=== PATIENT | male | born 1960 | race Caucasian/White ===

== ENCOUNTER 2016-12-24 06:35 | Emergency (ER) | payer OTHER ==
--- NOTE | 2016-12-24 08:13 | RAD ---
Indication: Left shoulder pain, chest pain. 2 views of the chest including dual energy PA views demonstrates no mediastinal shift. Heart is of normal size and configuration. Lung heredia are clear. IMPRESSION: No active cardiopulmonary disease is noted.
--- NOTE | 2016-12-24 08:14 | RAD ---
INDICATION: Left shoulder pain COMPARISON: None TECHNIQUE: Routine frontal, Y and axial views were obtained. FINDINGS: There are no acute bony findings. There is mild a.c. and glenohumeral osteoarthritis. There are early findings of calcific tendinitis. IMPRESSION: MINOR OSTEOARTHRITIC CHANGES.
[2016-12-24 08:20] LABS: Hematocrit 44 % (42-52); Hemoglobin 14.9 g/dl (14.0-18.0); Mean Corpuscular HGB Conc 34 g/dl (31-36); Mean Corpuscular Hemoglobin 28 pg (27-31); Mean Corpuscular Volume 83 fL (80-94); Mean Platelet Volume 9 um3 (7.4-10.4); Red Blood Count 5.29 10^6/ul (4.0-5.4); Red Cell Distribution Width 14 % (10.5-15); White Blood Count 9.6 10^3/ul (3.5-10.8)
[2016-12-24 08:36] LABS: Albumin 4.4 g/dL (3.2-5.2); BUN/Creatinine Ratio 15.6 (8-20); Calcium 9.4 mg/dL (8.6-10.3); EGFR African American 103.5 (>60); EGFR Non-African American 80.5 (>60); Globulin 2.8 g/dL (2-4); Potassium 4.1 mmol/L (3.5-5.0); Total Bilirubin 0.6 mg/dL (0.2-1.0); Total Protein 7.2 g/dL (6.4-8.9)
[2016-12-24 08:37] LABS: Troponin I 0.01 ng/mL (<0.04)
[2016-12-24 11:05] VITALS: BP 143/80
--- NOTE | 2016-12-24 18:49 | ED ---
Jim Ramos Rebecca, scribed for Camilo Hightower MD on 12/24/16 at 0740 . Upper Extremity Pain - HPI Summary HPI Summary: Pt is a 56 y/o M who presents to ED c/o L shoulder pain since this morning at 0600 upon waking up. Pain is currently severe, ranked 8/10 and described as being "in my bone" and sharp. Treated pain with 2 Oxycodone 5mg ENVELOPE CUTTER with no change. Sx aggravated by movement and alleviated by nothing. PMHx L rotator cuff problems with surgery. - History of Current Complaint Chief Complaint: EDExtremityUpper Stated Complaint: LEFT SHOULDER PAIN Time Seen by Provider: 12/24/16 07:19 Hx Obtained From: Patient Onset/Duration: Started Hours Ago, Still Present Severity Currently: Severe - 8/10 Pain Location: Shoulder - Left Character: Sharp Aggravating Factor(s): Movement Alleviating Factor(s): Nothing Associated Signs & Symptoms: Positive: Negative - Allergies/Home Medications Allergies/Adverse Reactions: Allergies Allergy/AdvReac Type Severity Reaction Status Date / Time No Known Allergies Allergy Verified 12/16/16 11:37 PMH/Surg Hx/FS Hx/Imm Hx Endocrine/Hematology History: Reports: Hx Diabetes - BORDERLINE Cardiovascular History: Denies: Hx Hypertension, Hx Pacemaker/ICD Respiratory History: Reports: Hx Asthma, Hx Chronic Obstructive Pulmonary Disease (COPD) History: Denies: Hx Dialysis, Hx Renal Disease Musculoskeletal History: Reports: Hx Arthritis - "ALL OVER", Other Musculoskeletal History - STENOSIS IN BACK Sensory History: Reports: Hx Contacts or Glasses - INSTRUCTS GIVEN Denies: Hx Hearing Aid Opthamlomology History: Reports: Hx Contacts or Glasses - INSTRUCTS GIVEN Psychiatric History: Reports: Hx Anxiety - NO MEDICATION FOR, Hx Depression - NO MEDICATION FOR Denies: Hx Panic Disorder - Surgical History Surgery Procedure, Year, and Place: ROME ROTATOR CUFF REPAIR; RIGHT KNEE ARTHROSCOPE Hx Anesthesia Reactions: No Infectious Disease History: No Infectious Disease History: Denies: Traveled Outside the [place] in Last 30 Days - Family History Known Family History: Negative: Hypertension, Diabetes - Social History Alcohol Use: Rare Substance Use Type: Reports: None Smoking Status (MU): Never Smoked Tobacco Review of Systems Negative: Fever Positive: Arthralgia - L shoulder pain All Other Systems Reviewed And Are Negative: Yes Physical Exam - Summary Physical Exam Summary: VITAL SIGNS: Reviewed. GENERAL: ~Patient is a well-developed and nourished male who is lying comfortable in the stretcher. ~Patient is not in any acute respiratory distress. HEAD AND FACE: No signs of trauma. ~No ecchymosis, hematomas or skull depressions. No sinus tenderness. EYES: PERRLA, EOMI x 2, No injected conjunctiva, no nystagmus. EARS: Hearing grossly intact. Ear canals and tympanic membranes are within normal limits. MOUTH: Oropharynx within normal limits. NECK: Supple, trachea is midline, no adenopathy, no JVD, no carotid bruit, no c- spine tenderness, neck with full ROM. CHEST: Symmetric, no tenderness at palpation LUNGS: Clear to auscultation bilaterally. No wheezing or crackles. CVS: Regular rate and rhythm, S1 and S2 present, no murmurs or gallops appreciated. ABDOMEN: Soft, non-tender. No signs of distention. No rebound no guarding, and no masses palpated. Bowel sounds are normal. EXTREMITIES: FROM in all major joints, no edema, no cyanosis or clubbing, slightly tender along L collar bone. NEURO: Alert and oriented x 3. No acute neurological deficits. Speech is normal and follows commands. SKIN: Dry and warm, no rashes Triage Information Reviewed: Yes Vital Signs On Initial Exam: Initial Vitals Temp Pulse Resp BP Pulse Ox 99.4 F 82 18 147/86 95 12/24/16 06:44 12/24/16 06:44 12/24/16 06:44 12/24/16 06:44 12/24/16 06:44 Vital Signs Reviewed: Yes Diagnostics - Vital Signs Vital Signs Temp Pulse Resp BP Pulse Ox 12/24/16 06:44 99.4 F 82 18 147/86 95 - Laboratory Lab Results: Lab Results 12/24/16 12/24/16 12/24/16 Range/Units 08:10 08:10 08:10 WBC 9.6 (3.5-10.8) 10^3/ul RBC 5.29 (4.0-5.4) 10^6/ul Hgb 14.9 (14.0-18.0) g/dl Hct 44 (42-52) % MCV 83 (80-94) fL MCH 28 (27-31) pg MCHC 34 (31-36) g/dl RDW 14 (10.5-15) % Plt Count 208 (150-450) 10^3/ul MPV 9 (7.4-10.4) um3 Neut % (Auto) 71.0 (38-83) % Lymph % (Auto) 16.2 L (25-47) % [place] % (Auto) 11.2 H (1-9) % Eos % (Auto) 1.1 (0-6) % Baso % (Auto) 0.5 (0-2) % Absolute Neuts (auto) 6.8 (1.5-7.7) 10^3/ul Absolute Lymphs (auto) 1.6 (1.0-4.8) 10^3/ul Absolute Monos (auto) 1.1 H (0-0.8) 10^3/ul Absolute Eos (auto) 0.1 (0-0.6) 10^3/ul Absolute Basos (auto) 0 (0-0.2) 10^3/ul Absolute Nucleated RBC 0.01 10^3/ul Nucleated RBC % 0.1 Sodium 136 (133-145) mmol/L Potassium 4.1 (3.5-5.0) mmol/L Chloride 102 (101-111) mmol/L Carbon Dioxide 27 (22-32) mmol/L Anion Gap 7 (2-11) mmol/L BUN 15 (6-24) mg/dL Creatinine 0.96 (0.67-1.17) mg/dL Est GFR ( Amer) 103.5 (>60) Est GFR (Non-Af Amer) 80.5 (>60) BUN/Creatinine Ratio 15.6 (8-20) Glucose 133 H (70-100) mg/dL Lactic Acid 1.1 (0.5-2.0) mmol/L Calcium 9.4 (8.6-10.3) mg/dL Total Bilirubin 0.60 (0.2-1.0) mg/dL AST 20 (13-39) U/L ALT 34 (7-52) U/L Alkaline Phosphatase 67 (34-104) U/L Troponin I 0.01 (<0.04) ng/mL Total Protein 7.2 (6.4-8.9) g/dL Albumin 4.4 (3.2-5.2) g/dL Globulin 2.8 (2-4) g/dL Albumin/Globulin Ratio 1.6 (1-3) Result Diagrams: 12/24/16 08:10 12/24/16 08:10 Lab Statement: Any lab studies that have been ordered have been reviewed, and results considered in the medical decision making process. - Radiology L Shoulder XR Xray Interpretation: No Acute Changes - MINOR OSTEOARTHRITIC CHANGES. Radiology Interpretation Completed By: Radiologist CXR Xray Interpretation: No Acute Changes - No active cardiopulmonary disease is noted. Radiology Interpretation Completed By: Radiologist - EKG 0700 Cardiac Rate: NL - 87 bpm EKG Rhythm: Sinus Rhythm EKG Interpretation: No ST elevations Course/Dx - Course Assessment/Plan: Pt is a 56 y/o M who presents to ED c/o L shoulder pain since this morning at 0600 upon waking up. Pain is currently severe, ranked 8/10 and described as being "in my bone" and sharp. Treated pain with 2 Oxycodone 5mg ENVELOPE CUTTER with no change. Sx aggravated by movement and alleviated by nothing. PMHx L rotator cuff problems with surgery. Blood work w/o any significant abnormality except for glucose of 133. Troponin of 0.01. CXR shows no acute cardiopulmonary disease. EKG is sinus rhythm with no ST elevations. Shoulder XR negative for acute fracture or dislocation. Pt came in with L shoulder pain and L upper chest pain. The pain is similar to his previous shoulder pains for which he has had rotator cuff surgery. The pain was reproducible to palpation along the L shoulder and L trapezius. The pain is increased with deep inspiration and also with movement of the L shoulder. Seeing as troponin is negative and EKG is negative I have low suspicion for acute coronary syndrome. I have low suspicion for PE as he is not hypoxic or tachycardic. The pt does not want to wait for 2nd troponin seeing as the pain is resolved. The pt is hemodynamically stable and A&Ox3. He was recommended to return to ED if any sx return or worsen. - Diagnoses Differential Diagnosis/HQI/PQRI: Positive: Bursitis, Contusion, Fracture (Closed ), Strain, Sprain Provider Diagnoses: Shoulder pain Discharge - Discharge Plan Condition: Stable Disposition: HOME Patient Education Materials: Shoulder Pain (ED) Referrals: Truong Gomez MD [Primary Care Provider] - 3 Days The documentation as recorded by the Jim obrien Rebecca accurately reflects the service I personally performed and the decisions made by me, Camilo Hightower MD.
== END 2016-12-24 11:06 | disposition home or self-care (01) ==
LOC: ED 06:35
DX: M25.512 Pain in left shoulder (principal)
CPT/HCPCS: 36415; 71020; 80053; 83605; 84484; 85025; 93005; 99283